=== PATIENT | male | born 1975 ===

== ENCOUNTER 2017-06-02 12:32 | Day surgery (SDC) | payer OTHER ==
[~2017-06-02 12:32] MED LIST: Lactated Ringers 1,000 ML IV SCH
--- NOTE | 2017-06-02 13:10 | PCM.PREANE ---
Preanesthetic Assessment - Anesthesia/Transfusion/Family Hx Anesthesia History: Prior Anesthesia Without Reaction Family History of Anesthesia Reaction: No Transfusion History: No Prior Transfusion(s) Intubation History: Unknown - Review of Systems General: No Symptoms Pulmonary: No Symptoms Cardiovascular: No Symptoms Gastrointestinal: Difficulty Swallowing Neurological: No Symptoms Other: Reports: None - Physical Assessment Height: 1.7 m Weight: 96.615 kg ASA Class: 2 Mental Status: Alert & Oriented x3 Airway Class: Mallampati = 2 Dentition: Reports: Normal Dentition Thyro-Mental Finger Breadths: 3 Mouth Opening Finger Breadths: 2 ROM/Head Extension: Full Lungs: Clear to Auscultation, Normal Respiratory Effort Cardiovascular: Regular Rate, Regular Rhythm - Allergies Allergies/Adverse Reactions: Allergies Allergy/AdvReac Type Severity Reaction Status Date / Time No Known Allergies Allergy Verified 07/16/14 08:08 - Blood Blood Available: No - Anesthesia Plan Pre-Op Medication Ordered: None - Acknowledgements Anesthesia Type Planned: MAC Pt an Appropriate Candidate for the Planned Anesthesia: Yes Alternatives and Risks of Anesthesia Discussed w Pt/Guardian: Yes Pt/Guardian Understands and Agrees with Anesthesia Plan: Yes PreAnesthesia Questionnaire Cardiovascular History: Reports: Hypertension Gastrointestinal History: Reports: GERD, Other (See Below) Other Gastrointestinal History: occasional heartburn, dysphagia Genitourinary History: Reports: Renal Calculus Endocrine/Metabolic History: Reports: Obesity/BMI 30+ - Past Surgical History Head Surgeries/Procedures: Reports: None GI Surgical History: Reports: Cholecystectomy, EGD (with dilatation 2014) - SUBSTANCE USE Smoking Status *Q: Never Smoker Days Per Week of Alcohol Use: 0 Number of Drinks Per Day: 0 Total Drinks Per Week: 0 Recreational Drug Use History: No - HOME MEDS Home Medications: Home Meds . [No Known Home Meds] 06/01/17 [History] - CURRENT (IN HOUSE) MEDS Current Meds: Current Medications Lactated Ringer's (Ringers, Lactated) 1,000 mls @ 125 mls/hr IV ASDIRECTED [facility]
[2017-06-02] MEDS ORDERED: Lidocaine 2% 5 ML SDV ONE (13:42)
[2017-06-02] MEDS ORDERED: Propofol 200 MG/20 ML SDV ONE (13:42)
[2017-06-02] MEDS ORDERED: fentaNYL 100 MCG/2 ML SDV ONE ×2 (13:42→13:43)
[2017-06-02] MEDS ORDERED: Midazolam 1 MG/ML 2 ML SDV ONE (13:42)
[2017-06-02] MEDS ORDERED: Ondansetron 4 MG/2 ML SDV ONE (13:43)
[2017-06-02] MEDS ORDERED: Rocuronium 10 MG/ML 10 ML Syringe ONE (13:43)
[2017-06-02] MEDS ORDERED: Neostigmine Methylsulfate 1 MG/ML 5 ML Syringe ONE (13:43)
[2017-06-02] MEDS ORDERED: Sugammadex Sodium 200 MG/2 ML VIAL ONE (14:25)
--- NOTE | 2017-06-02 14:52 | PCM.OPNOTE ---
- General Post-Op/Procedure Note Date of Surgery/Procedure: 06/02/17 Operative Procedure(s): Esophagogastroduodenoscopy with balloon dilatation of esophageal stricture to 54 [place] and biopsies of the distal stomach and distal antrum. Pre Op Diagnosis: Dysphagia with known esophageal stricture Post-Op Diagnosis: Same Anesthesia Technique: General ET Tube (ASA II) Primary Surgeon: Gera Hernandez Condition: Good Free Text/Narrative:: Dictation [id number] CPT CODE [id number]
--- NOTE | 2017-06-02 14:55 | PCM.POSTAN ---
POST ANESTHESIA ASSESSMENT - MENTAL STATUS Mental Status: Alert, Oriented - VITAL SIGNS Pulse Rate: 80 SaO2: 98 Resp Rate: 18 Blood Pressure: 112/75 - RESPIRATORY Respiratory Status: Respiratory Rate WNL, Airway Patent, O2 Saturation Stable - CARDIOVASCULAR CV Status: Pulse Rate WNL, Blood Pressure Stable - GASTROINTESTINAL GI Status: No Symptoms - PAIN Pain Score: 0 - POST OP HYDRATION Hydration Status: Adequate & Stable - OBSERVATIONS Free Text/Narrative:: Awake and talking warm pink and dry vitals in stable limits comfortable ready for phase 2
[2017-06-02] MEDS ORDERED: Lactated Ringers 1,000 ML IV SCH (15:00)
[2017-06-02 15:37] VITALS: BP 133/93
--- NOTE | 2017-06-02 16:23 | OR ---
SURGEON: Gera Hernandez M.D. DATE OF PROCEDURE: 06/02/2017 OPERATION PERFORMED: Esophagogastroduodenoscopy with balloon dilatation of esophageal stricture to 54- [place] and antral and esophageal biopsies. ANESTHESIA: General endotracheal. ASA CLASSIFICATION: II. PREOPERATIVE DIAGNOSIS: Esophageal stricture with progressive dysphagia. POSTOPERATIVE DIAGNOSES: 1. GE junction stricture. 2. Gastritis. DESCRIPTION OF PROCEDURE: The patient was taken to the operating room and placed on the operating table in the supine position. Time-out was called for appropriate identification of the patient and procedure. Following satisfactory attainment of general endotracheal anesthesia, the bite block was placed between the patient's teeth. The gastroscope was inserted through the bite block and advanced to the distal esophagus. One could easily see the stricture at the GE junction, but the gastroscope would not traverse this area. Therefore, balloon dilatation was serially carried out to 54-[place]. At that point, I was able to advance the gastroscope through the stricture into the stomach and subsequently through the pylorus into the duodenum where examination was carried out in a retrograde fashion. The duodenum showed no acute inflammatory changes. The stomach does show [id number] gastritis. Antral biopsies were obtained to look for the presence of Helicobacter pylori. The gastroscope was retroflexed to visualize the proximal stomach. No cardia lesions were identified. The scope was then slowly withdrawn and the stricture again identified. This does have the appearance of a benign stricture. Separate biopsies of the stricture were obtained. The esophagus demonstrates fair contractility. As the scope was withdrawn, it was noted that the endotracheal tube bed slid back. No vocal cord lesions were identified at the time of intubation or at the time withdrawal of the gastroscope. The patient tolerated the procedure well. Following emergence from anesthesia, he was taken to recovery room in stable condition. SHIRLEY / BRENDEN /[id number]
== END 2017-06-02 13:45 | disposition home or self-care (01) ==
LOC: MW.SDS 12:32
PROVIDERS: ATTEND Surgery
DX: K22.2 Esophageal obstruction (principal); K29.50 Unspecified chronic gastritis without bleeding; K20.9 Esophagitis, unspecified; K21.9 Gastro-esophageal reflux disease without esophagitis; I10 Essential (primary) hypertension; E66.9 Obesity, unspecified; Z68.33 Body mass index [BMI] 33.0-33.9, adult; Z98.52 Vasectomy status; Z87.442 Personal history of urinary calculi; Z90.49 Acquired absence of other specified parts of digestive tract
CPT/HCPCS: 43239; 43249; 88305; 88312; C9399; J2250; J2405; J3010; J7120; 00731; J2704